=== PATIENT | female | born 1965 | race Caucasian/White ===

== ENCOUNTER → 2016-12-19 | Outpatient (CLI) | payer OTHER ==
[~2016-12-19] MED LIST: ADDERALL 15 MG15 M1 PO; ADDERALL 30 MG30 M1 PO; ADDERALL PO; ADDERALL XR10 MG PO; AUGMENTIN PO; B-12500 MCG IM; BIOTIN PO; BISACODYL5 M2 PO; BUSPAR PO; BUSPAR15 M1 PO; CALCIUM + D 6001 TA1 PO; CARAFATE1 G PO; CELEXA PO; CLEOCIN HCL300 M1 PO; COLACE PO; COREG6.25 MG PO; CYMBALTA30 M1 PO; DULCOLAX5 MG PO; DURAGESIC75 MCG EXT; FETZIMA80 MG PO; FIBER CHOI1 TAB.CHE1 PO; FLAGYL PO; FOLIC ACID1 MG PO; HYDROCHLOROTHIA25 MG PO; HYDROCODONE-APA1 T54 PO; IBUPROFEN800 MG PO; KLONOPIN1 MG PO; LIVALO2 MG PO; LORTAB 10-5001 EACH PO; LORTAB 7.5-5001 TAB PO; MOTRIN600 MG PO; MUCINEX DM1 TAB.SR . PO; MULTI VITAMIN1 EACH PO; NEURONTIN800 MG PO; PAIN PUMP; PHENERGAN PO; PRILOSEC PO; PROTONIX PO; PROTONIX20 MG PO; QUESTRAN LIGH4 G/PKT PO; ROBAXIN 750750 M1 PO; SAVELLA100 MG PO; TOPAMAX PO; TRINTELLIX PO; VICODIN 5/1 TAB 5/50 PO; VICODIN 5/500 T1 TAB PO; VOLTAREN75 MG PO; ZEGERID OTC 201 EACH PO; ZYRTEC10 M2 PO; [UNRECOGNIZED DRUG - OTHER]
--- NOTE | ~2016-12-19 | EKG ---
PATIENT: DARSHAN CHAN UNIT #: [id number] Ventricular Rate: 73 BPM Atrial Rate: 73 BPM P-R Interval: 160 ms QRS Duration: 90 ms Q-T Interval: 414 ms QTC Calculation(Bezet): 456 ms P [place]: 46 degrees Calculated R [place]: -9 degrees Calculated T [place]: 34 degrees Diagnosis Line: Normal sinus rhythm Diagnosis Line: Low voltage QRS Diagnosis Line: Otherwise normal ECG Diagnosis Line: When compared with ECG of 01-MAY-2015 12:26, Diagnosis Line: No significant change was found Diagnosis Line: Confirmed by LEXIE GRAY MD ([id number]) on 12/19/2016 Diagnosis Line: 6:10:46 PM INTERPRETING MD: ISAAC FRIEND
[2016-12-19 15:45] LABS: BUN/CREATININE RATIO 18.75; CALCIUM SERUM 9.5 mg/dL (8.4-10.2); CREATININE SERUM 0.8 mg/dL (0.6-1.4); GLOM FILT RATE Estimated 85.4 mL/min (>60); POTASSIUM 3.8 mmol/L (3.5-5.1)
== END | disposition home or self-care (01) ==
LOC: CAMB 14:00
PROVIDERS: Surgery
DX: Z01.818 Encounter for other preprocedural examination (principal); K40.90 Unilateral inguinal hernia, without obstruction or gangrene, not specified as recurrent
CPT/HCPCS: 36415; 80048; 93005

== ENCOUNTER → 2016-12-31 | Day surgery (SDC) | payer BC ==
--- NOTE | ~2016-12-31 | OR ---
Unit #: [id number] #: [id number] Patient: DARSHAN CHAN [id number] [facility]. [address] [place], [place] [address] [id number] O MR#: [id number] NAME: DARSHAN CHAN ROOM: Date of Procedure: 12/31/2016 Admission Date: 12/31/2016 Surgeon: Emmanuel Castelan Jr., M.D. : 1965 Attending Physician: Emmanuel Castelan Jr., M.D. Primary Care Physician: Andrea Way M.D. OPERATIVE REPORT INDICATIONS FOR PROCEDURE The patient is a 51-year-old white female who recently presented to the office with complaining of a bulge and pain in the left inguinal area. On examination, she had a point tender area over the external ring, felt to be an inguinal hernia, and she was brought in at this time for repair of this. PREOPERATIVE DIAGNOSIS Left inguinal hernia. POSTOPERATIVE DIAGNOSIS Left inguinal hernia, noting a direct left inguinal hernia. ANESTHESIA General with LMA and 0.5% Marcaine with epinephrine locally. PROCEDURE PERFORMED Left inguinal hernia repair using plug and patch technique. DESCRIPTION OF PROCEDURE The patient was positioned in supine position. After being anesthetized, he was prepped and draped in routine fashion for left inguinal hernia repair. Left inguinal block was performed with 0.5% Marcaine with epinephrine. This was a field block, and after it was performed, a transverse incision was made over the left inguinal canal approximately 3- to 4-inch in length. This was carried transversely, it was carried down through subcutaneous tissue through Olivia's, Camper fascia, and the external oblique fascia. The fibers of external oblique were split from the external ring to pass the internal ring. The round ligament and surrounding tissue were freed up, it was clamped and divided distally near the pubic tubercle and ligated with 0 Vicryl stitch. The round ligament was then freed up to its entrance into the abdominal wall near the internal ring. It was then checked. There was no evidence of any indirect sac. It was then ligated with a 0-Vicryl stitch. The floor of the inguinal canal was obviously weak and had a central defect approximately a quarter-size. This was freed up from the surrounding tissue and scored with a Bovie cautery, and a large plug was placed in the preperitoneal space and sutured in place with interrupted 0 Ethibond sutures. The patch was placed over the floor of the inguinal canal, and this was sutured in place with interrupted 0 Ethibond sutures. At this point, the wound was irrigated with antibiotic solution, which was also used to presoak the plug and patch, and the external oblique fascia was Unit #: [id number] #: [id number] Patient: DARSHAN CHAN then closed with a continuous 3-0 Vicryl stitch over the top of the ilioinguinal nerve, which was kept intact to avoid any entrapment or damage. The Olivia and Camper fascia were approximated with interrupted 3-0 Vicryl sutures. Skin edges were approximated with stainless-steel skin clips and skin stapling device. Sterile dressings were applied externally. Estimated blood loss less than 50 mL. The patient received 1000 mL crystalloid solution during the procedure. Sponges and instruments counts were correct x3. No drains were used. No complications. The patient was taken to the recovery room with stable vital signs in satisfactory condition. Dictated by... Emmanuel Castelan Jr., M.D. JMB/basil TD: 01/01/2017 05:32 JOB #: [id number] OPERATIVE REPORT Page 1 of 1 X Emmanuel Castelan MD X PROCEDURE OPERATIVE NOTE
== END | disposition home or self-care (01) ==
LOC: CSUR 06:07
DX: K40.90 Unilateral inguinal hernia, without obstruction or gangrene, not specified as recurrent (principal); K21.9 Gastro-esophageal reflux disease without esophagitis; M19.90 Unspecified osteoarthritis, unspecified site; E78.5 Hyperlipidemia, unspecified; G47.33 Obstructive sleep apnea (adult) (pediatric); F41.9 Anxiety disorder, unspecified; G89.29 Other chronic pain; F32.9 Major depressive disorder, single episode, unspecified; Z87.19 Personal history of other diseases of the digestive system; Z88.8 Allergy status to other drugs, medicaments and biological substances; Z87.891 Personal history of nicotine dependence; Z79.899 Other long term (current) drug therapy; Z98.1 Arthrodesis status; Z90.49 Acquired absence of other specified parts of digestive tract; Z98.890 Other specified postprocedural states
CPT/HCPCS: C1781; J0690; J1100; J1885; J2250; J2270; J2765

== ENCOUNTER → 2017-03-25 | Outpatient (CLI) | payer OTHER ==
--- NOTE | ~2017-03-25 | CT2 ---
[facility] A Service of [facility] RADIOLOGY TEXT RESULTS PATIENT: DARSHAN CHAN LOCATION: [facility] : 65 UNIT #: [id number] AGE: [address]: Emmanuel Castelan MD SEX: F ORDER DR: [id number] [facility] [address] [place], [place] [address] [id number] O MR#: [id number] Acc #: [id number] NAME: DARSHAN CHAN : 1965 SEX: F STUDY DATE/TIME: 03/25/2017 12:26 UNIT: [facility] ROOM: STUDY DESCRIPTION: CT Abd and Pelv W Cont Attending Physician: Emmanuel Castelan Jr., M.D. Referring Physician: Emmanuel Castelan Jr., M.D. Ordering Physician: Emmanuel Castelan Jr., M.D. Primary Care Physician: Andrea Way M.D. MEDICAL IMAGING REPORT This report is preliminary unless electronic signature is present EXAM CT abdomen and pelvis with contrast. INDICATIONS Recurrent hernia, left lower quadrant. This was repaired in December 2016. Still having pain in that region for 3-4. COMPARISON 04/22/2013. TECHNIQUE Patient was given 100 mL of Isovue-370, and axial 5-mm images were obtained through the abdomen and pelvis. Sagittal and coronal reconstructions were generated. This CT exam was performed with one or more of the following radiation dose reduction techniques: automatic exposure control, adjustment of mA and/or kV according to patient size, and iterative reconstruction. FINDINGS Lung bases are clear except for a calcified right base granuloma. There is a small hernia through the posterior left diaphragm. This has a small amount of fat herniating through it. This has developed since 2012. The defect in the diaphragm is about 2 cm in diameter. The liver, gallbladder, spleen, pancreas, adrenal glands and kidneys are normal in appearance. The aorta is normal in size. There are postop changes in the left inguinal region suggesting prior hernia repair. There is no current hernia visible. There is some type of pump device in the lower anterior abdominal wall, and there is a catheter extending around to the paraspinal musculature, and this appears to be eventually entering the spine. There are postop changes at L4, L5 and S1, and they are stable. There is scoliosis. The bowel is normal. The uterus and adnexal regions are normal except for a uterine fibroid which is in the right side of the uterus. It measures 3 cm in diameter. It has decreased in size. [facility] A Service of [facility] RADIOLOGY TEXT RESULTS PATIENT: DARSHAN CHAN LOCATION: [facility] : [birth year] UNIT #: [id number] AGE: [address]: Emmanuel Castelan MD SEX: F ORDER DR: IMPRESSION 1. No abdominal wall hernia is identified. The patient appears to have had a previous left abdominal hernia repair. 2. Scoliosis and degenerative changes of the lumbar spine. Postop changes of the lower lumbar spine. 3. Uterine fibroid has decreased in size from 04/22/2013. Dictated by... Olayinka Barbosa M.D. THIS IS AN ELECTRONICALLY VERIFIED REPORT Olayinka Barbosa M.D. at 03/25/2017 10:09 PM [place] TD: 03/25/2017 18:17 JOB #: [id number] MEDICAL IMAGING REPORT Page 1 of 1 COPY
== END | disposition home or self-care (01) ==
LOC: CCAT 10:40
DX: K46.9 Unspecified abdominal hernia without obstruction or gangrene (principal); M41.9 Scoliosis, unspecified; M47.896 Other spondylosis, lumbar region; Z98.890 Other specified postprocedural states; D25.9 Leiomyoma of uterus, unspecified
CPT/HCPCS: 74177; Q9967